=== PATIENT | male | born 1955 | race Caucasian/White ===

== ENCOUNTER 2018-12-22 17:44 | Emergency (ER) | payer MEDICARE ==
[~2018-12-22] VITALS: Ht 177.8 cm; Wt 80.0 kg
[2018-12-22 18:12] VITALS: BP 158/98
== END 2018-12-22 21:04 | disposition left against medical advice (07) ==
LOC: ER 17:44
DX: S61.213A Laceration without foreign body of left middle finger without damage to nail, initial encounter (principal); Z53.21 Procedure and treatment not carried out due to patient leaving prior to being seen by health care provider; W45.8XXA Other foreign body or object entering through skin, initial encounter; Y93.89 Activity, other specified; Y92.89 Other specified places as the place of occurrence of the external cause; Y99.8 Other external cause status

== ENCOUNTER 2018-12-23 09:18 | Emergency (ER) | payer MEDICARE ==
[~2018-12-23] VITALS: Ht 175.3 cm; Wt 79.0 kg
[2018-12-23] MEDS ORDERED: SILVER NITRATE APPLICATOR STICK TOP ONE (10:15)
[2018-12-23] MEDS ORDERED: TETANUS, DIPHTHERIA, PERTUSSIS VAC/PF 0.5ML (>7YR OLD) IM ONE (10:15)
[2018-12-23 11:27] VITALS: BP 140/84
== END 2018-12-23 11:27 | disposition home or self-care (01) ==
LOC: ER 09:18
DX: S61.213A Laceration without foreign body of left middle finger without damage to nail, initial encounter (principal); I10 Essential (primary) hypertension; M19.90 Unspecified osteoarthritis, unspecified site; Z87.891 Personal history of nicotine dependence; Z96.649 Presence of unspecified artificial hip joint; W22.8XXA Striking against or struck by other objects, initial encounter; Y93.89 Activity, other specified; Y92.89 Other specified places as the place of occurrence of the external cause; Y99.8 Other external cause status
CPT/HCPCS: 73140; 90471; 90715; 99283